=== PATIENT | male | born 1980 | race Caucasian/White ===

== ENCOUNTER 2017-08-23 09:11 | Emergency (ER) | payer OTHER ==
[~2017-08-23] VITALS: Ht 177.8 cm; Wt 93.8 kg
[~2017-08-23 09:11] MED LIST: BUPR2MIS SL; CLON1TAB3 PO
[2017-08-23 09:17] VITALS: Ht 177.8 cm; Wt 93.8 kg
[2017-08-23] MEDS ORDERED: CLON0.5T3 PO (09:31)
[2017-08-23] MEDS ORDERED: BUPR1SUB23 SL (09:31)
--- NOTE | 2017-08-23 10:32 | DIAGNOSTIC IMAGING REPORT ---
HEAD WITHOUT CONTRAST (CT) CT DOSE: 614.27 mGy.cm HISTORY: Mental status change. Vision loss. Evaluate for hemorrhage or pathology TECHNIQUE: Multiaxial CT images of the head were performed without the use of intravenous contrast. A dose lowering technique was utilized adhering to the principles of ALARA. Comparison: 09/04/2007 Findings: The paranasal sinuses and mastoid air cells are clear. The calvarium and skull base are intact. The ventricles and sulci are within normal limits. There is no mass, hematoma, midline shift, or acute infarct. Impression: No acute intracranial abnormality. The above report was generated using voice recognition software. It may contain grammatical, syntax or spelling errors. Electronically signed by: Dwain Holly M.D. 08/23/2017 10:31 AM Dictated Date/Time: 08/23/2017 10:30 AM
[2017-08-23 10:41] LABS: BASO % 0.7 %; BASO ABS # 0.06 K/uL (0-0.2); HEMATOCRIT 42.3 % (42-52); HEMOGLOBIN 14.3 g/dL (14.0-18.0); IG# 0.02 K/uL (0.00-0.02); LYMPH % 27.2 %; LYMPH ABS # 2.27 K/uL (1.2-3.4); MEAN CELL VOLUME 83.3 fL (80-100); MEAN CORPUSCULAR HEMOGLOBIN 28.1 pg (25-34); MEAN CORPUSCULAR HGB CONC 33.8 g/dl (32-36); MEAN PLATELET VOLUME 8.9 fL (7.4-10.4); MONO % 7.7 %; MONO ABS # 0.64 K/uL (0.11-0.59); NEUT % 58.2 %; NEUT ABS # 4.85 K/uL (1.4-6.5); PLATELET COUNT 242 K/uL (130-400); RED CELL DISTRIBUTION WIDTH CV 13.5 % (11.5-14.5); WHITE BLOOD COUNT 8.34 K/uL (4.8-10.8)
[2017-08-23] MEDS ORDERED: BRIMONIDINE TARTRATE-P 0.15% 5 ML BTL OP STA (10:44)
[2017-08-23] MEDS ORDERED: AcetaZOLAMIDE 250 MG TAB PO STA (10:44)
[2017-08-23] MEDS ORDERED: DORZOLAMIDE HCL 2% OPH SOLN 10 ML BTL OP STA (10:44)
[2017-08-23] MEDS ORDERED: LATANOPROST 0.005% OP SOLN 2.5 ML BTL OP STA (10:44)
[2017-08-23] MEDS ORDERED: TIMOLOL MALEATE 0.5% OP SOLN 5 ML BTL OP STA (10:44)
--- NOTE | 2017-08-23 10:49 | EMERGENCY ROOM VISIT NOTE ---
History Report prepared by Marisa: Chapin Negrete Under the Supervision of: Dr. Neftaly Bates M.D. First contact with patient: 09:55 Chief Complaint: EYE ASSESSMENT Stated Complaint: VISION LOSS History of Present Illness The patient is a 36 year old white male who presents to the ED with a cc of an episode of complete left sided visual loss occurring last night. Patient has baseline visual problems, but states that his vision was baseline yesterday prior to the episode. 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 He has had surgery to drain his eyes in the past to relieve pressure. Patient reports that his vision was gone for 1.5 hours last night. Vision returned gradually following this. Positive headache last night. Lost vision in left eye for 1.5 hours, gradually returned. He does not wear glasses or contacts. He denies getting anything in his eyes recently. 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 He was seen at [facility] for his symptoms just prior to arrival and was referred to the ED for further evaluation. He is not on any blood thinners. Negative numbness, weakness, or difficulty speaking. Source of History: patient Onset: Last night Position: eye (left) Symptom Intensity: 1.5 hours long Quality: other (complete visual loss) Timing: other (episode) Associated Symptoms: + headache (last night), No weakness, No numbness Note: Negative: difficulty speaking. Review of Systems See HPI for pertinent positives and negatives. A total of ten systems were reviewed and were otherwise negative. Past Medical & Surgical Medical Problems: (1) Foreign body of hand, left (2) Glaucoma (3) Migraine (4) Opioid dependence on agonist therapy (5) Puncture wound of hand, left Family History No pertinent family history stated. Social History Smoking Status: Current Some Day Smoker Housing Status: lives with family Occupation Status: employed Current/Historical Medications Scheduled Buprenorphine Hcl-Naloxone Hcl (Suboxone 8-2 Mg), 2 DOSE SL DAILY Scheduled PRN Clonazepam (Klonopin), 0.5 MG PO DAILY PRN for UNDECIDED Allergies Coded Allergies: No Known Allergies (Verified , 11/03/15) Physical Exam Vital Signs Date Time Temp Pulse Resp B/P (MAP) Pulse Ox O2 Delivery O2 Flow Rate FiO2 08/23/17 11:23 36.5 77 18 146/93 100 08/23/17 11:17 77 18 146/93 100 Room Air 08/23/17 09:17 36.5 74 18 133/90 100 Room Air Physical Exam GENERAL: Awake, alert, well-appearing, NAD HENT: Normocephalic, atraumatic. EYES: Normal conjunctiva. Sclera non-icteric. 20/100 in the right. For left, able to read card when brought two feet closer. Corneas appear foggy. EOMI. No APD. No proptosis. No conjunctival injection or drainage. Pressure in left eye is 70. Right eye is 11. Negative Lanie's test bilaterally. NECK: Supple. No nuchal rigidity. FROM. RESPIRATORY: CTAB, no rhonchi, wheezing, crackles CARDIAC: RRR, no MRG ABDOMEN: Soft, NTND, BS+ MSK: No chest wall TTP, no LE edema NEURO: CN 2-12 intact, 5/5 upper and lower extremity strength, no dysmetria, no drift, good finger to nose, no sensory deficits. Finger count grossly normal. PERRL. SKIN: No rash or jaundice noted. Medical Decision & Procedures ER Provider Diagnostic Interpretation: Radiology results as stated below per my review and radiologist interpretation: HEAD WITHOUT CONTRAST (CT) Findings: The paranasal sinuses and mastoid air cells are clear. The calvarium and skull base are intact. The ventricles and sulci are within normal limits. There is no mass, hematoma, midline shift, or acute infarct. Impression: No acute intracranial abnormality. The above report was generated using voice recognition software. It may contain grammatical, syntax or spelling errors. Electronically signed by: Dwain Holly M.D. 08/23/2017 10:31 AM Laboratory Results 08/23/17 10:20 Red Blood Count 5.08, Mean Corpuscular Volume 83.3, Mean Corpuscular Hemoglobin 28.1, Mean Corpuscular Hemoglobin Concent 33.8, Mean Platelet Volume 8.9, Neutrophils (%) (Auto) 58.2, Lymphocytes (%) (Auto) 27.2, Monocytes (%) (Auto) 7.7, Eosinophils (%) (Auto) 6.0, Basophils (%) (Auto) 0.7, Neutrophils # (Auto) 4.85, Lymphocytes # (Auto) 2.27, Monocytes # (Auto) 0.64, Eosinophils # (Auto) 0.50, Basophils # (Auto) 0.06 08/23/17 10:20 Test 08/23/17 10:20 White Blood Count 8.34 K/uL (4.8-10.8) Red Blood Count 5.08 M/uL (4.7-6.1) Hemoglobin 14.3 g/dL (14.0-18.0) Hematocrit 42.3 % (42-52) Mean Corpuscular Volume 83.3 fL (80-100) Mean Corpuscular Hemoglobin 28.1 pg (25-34) Mean Corpuscular Hemoglobin Concent 33.8 g/dl (32-36) Platelet Count 242 K/uL (130-400) Mean Platelet Volume 8.9 fL (7.4-10.4) Neutrophils (%) (Auto) 58.2 % Lymphocytes (%) (Auto) 27.2 % Monocytes (%) (Auto) 7.7 % Eosinophils (%) (Auto) 6.0 % Basophils (%) (Auto) 0.7 % Neutrophils # (Auto) 4.85 K/uL (1.4-6.5) Lymphocytes # (Auto) 2.27 K/uL (1.2-3.4) Monocytes # (Auto) 0.64 K/uL (0.11-0.59) Eosinophils # (Auto) 0.50 K/uL (0-0.5) Basophils # (Auto) 0.06 K/uL (0-0.2) RDW Standard Deviation 41.0 fL (36.4-46.3) RDW Coefficient of Variation 13.5 % (11.5-14.5) Immature Granulocyte % (Auto) 0.2 % Immature Granulocyte # (Auto) 0.02 K/uL (0.00-0.02) Erythrocyte Sedimentation Rate 8 mm/hr (0-14) Anion Gap 5.0 mmol/L (3-11) Est Creatinine Clear Calc Drug Dose 137.9 ml/min Estimated GFR () 130.2 Estimated GFR (Non- 112.3 BUN/Creatinine Ratio 25.8 (10-20) Calcium Level 8.6 mg/dl (8.5-10.1) C-Reactive Protein < 0.29 mg/dl (0-0.29) Lyme Disease IgG Antibody NEG (NEG) Lyme Disease IgM Antibody NEG (NEG) Laboratory results reviewed by me Medications Administered Medications (Trade) Dose Ordered Sig/Wojciech Route Start Time Stop Time Status Last Admin Dose Admin Timolol Maleate (Timoptic 0.5% Oph Soln) 2 drops ONE STAT OP 08/23/17 10:44 08/23/17 10:47 DC 08/23/17 11:13 2 DROPS Acetazolamide (Diamox Tab) 500 mg BID STAT PO 08/23/17 10:44 08/23/17 10:47 DC 08/23/17 11:10 500 MG Latanoprost (Xalatan Oph Soln) 2 drops ONE STAT OP 08/23/17 10:44 08/23/17 10:47 DC 08/23/17 11:12 2 DROPS Dorzolamide HCl (Trusopt 2% Oph Soln) 1 drops ONE STAT OP 08/23/17 10:44 08/23/17 10:47 DC 08/23/17 11:12 1 DROPS Brimonidine Tartrate (Alphagan-P 0.15% Oph Soln) 2 drops ONE STAT OP 08/23/17 10:44 08/23/17 10:47 DC 08/23/17 11:11 2 DROPS ED Course 0957: The patient was evaluated in room A4B. A complete history and physical exam was performed. 1045: I reevaluated the patient. Discussed results and discharge instructions: he verbalized understanding and agreement. The patient is ready for discharge. Medical Decision The patient is a 36 year old white male who presents to the ED with a cc of an episode of left sided visual loss occurring last night. Differential diagnosis: Etiologies such as migraine headache, meningitis, sinusitis, CO exposure, ICH, SAH, infection, tumor, headache, sinus thrombosis, arterial dissection, as well as others were entertained. Prior records were reviewed. Patient was seen and evaluated the bedside. Patient was complaining total vision loss in left eye with an associated headache yesterday. Patient states that the headache is resolved he still has some blurry vision left worse than right. Patient does not use any contacts or glasses. Patient denies any recent trauma. 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 Patient does state that he does have a history of questionable increased pressures in his eyes. Patient states that he did have what sounds to be an ocular centesis. On exam the patient does have worsening vision the left eye with increased intraocular pressures at greater than 70. I did speak with the on-call ethnographic materials conservator who recommended being sent over after be given drops as well as p.o. Diamox. Patient's blood work was fairly unremarkable. Inflammatory markers and Lyme's test are unremarkable. Patient was informed of these findings the patient was given the medications and was referred to the outpatient ethnographic materials conservator. Patient was given strict follow-up, discharge, and return precautions. All questions were answered. Patient was deemed suitable for outpatient follow-up at this time. Patient agreed with the plan of care and was safely discharged home. Medication Reconcilliation Current Medication List: was personally reviewed by me Blood Pressure Screening Patient's blood pressure: Elevated blood pressure Blood pressure disposition: Elevated BP felt to be situational Consults Time Called: 1038 Consulting Physician: Dr. Napoles Ophthalmology Returned Call: [phone] Discussed the patient's case. Dr. Napoles recommends Diamox as well as an assortment of eye drops. He would like to see the patient urgently in the office. Impression Primary Impression: Glaucoma Additional Impression: Blurry vision Scribe Attestation The scribe's documentation has been prepared under my direction and personally reviewed by me in its entirety. I confirm that the note above accurately reflects all work, treatment, procedures, and medical decision making performed by me. Departure Information Dispostion Home / Self-Care Referrals No Doctor, Assigned (PCP) Kit Napoles MD Patient Instructions Glaucoma, Glaucoma Tx, My [facility] Additional Instructions Please return to the emergency department if you have worsening or recurrent symptoms not amenable to at-home treatment. Please call for a follow-up appointment with her primary care physician. Please take your medications as prescribed. If you have other concerns and/or complaints please feel free to also call your primary care physician's office or return the ED for further evaluation, management, and treatment. You may take 600 mg Ibuprofen every 6 hours as needed for pain with food for no more than 2 consecutive days. You may take tylenol 1000 mg every 6 hours as needed for pain. You may take motrin and tylenol separately or at the same time. Take your medications as prescribed. Please use the medications for your eyes as instructed by your eye doctor. You have been examined and treated today on an emergency basis only. This is not a substitute for, or an effort to provide, complete comprehensive medical care. It is impossible to recognize and treat all injuries or illnesses in a single emergency department visit. It is therefore important that you follow up closely with [facility], your PCP, and/or your specialist(s). Call as soon as possible for an appointment. Thank you for your time and consideration. I look forward to speaking with you again soon. Please don't hesitate to call us if you have any questions. Problem Qualifiers Primary Impression: Glaucoma Glaucoma type: unspecified Laterality: left Qualified Codes: H40.9 - Unspecified glaucoma
[2017-08-23 10:59] LABS: BLOOD UREA NITROGEN 22 mg/dl (7-18); CALCIUM 8.6 mg/dl (8.5-10.1); CARBON DIOXIDE 25 mmol/L (21-32); CREATININE 0.86 mg/dl (0.60-1.40); GLUCOSE 94 mg/dl (70-99); SODIUM 138 mmol/L (136-145)
[2017-08-23 11:23] VITALS: BP 146/93; PULSE 77; TEMP 36.5; O2SAT 100
== END 2017-08-23 11:26 | disposition home or self-care (01) ==
LOC: C.EDB 09:12 → C.EDA 11:26
DX: H40.9 Unspecified glaucoma (principal); H54.62 Unqualified visual loss, left eye, normal vision right eye; F17.210 Nicotine dependence, cigarettes, uncomplicated

== ENCOUNTER 2021-07-01 10:44 | Observation (INO) ==
[2021-07-01] MEDS ORDERED: MoRPHine SULFATE 4 MG/ML 1 ML CARP\\VIAL ONE (10:50)
[2021-07-01] MEDS ORDERED: ceFAZolin 3,000 MG in DEXTROSE 5% 50 ML IV STA (10:58)
[2021-07-01] MEDS ORDERED: SODIUM CHLORIDE 0.9% 1000ML 2,000 ML IV ONE (11:00)
[2021-07-01 11:05] LABS: Basophils # (auto) 0.05 K/uL (0-0.2); Basophils % (auto) 0.4 %; Eosinophils # (auto) 0.18 K/uL (0-0.5); Eosinophils % (auto) 1.5 %; Hematocrit (blood only) 41.9 % (42-52); Hemoglobin 13.9 g/dL (14.0-18.0); Immature Granulocytes # (auto) 0.03 K/uL (0.00-0.02); Immature Granulocytes % (auto) 0.2 %; Lymphocytes # (auto) 3.76 K/uL (1.2-3.4); Lymphocytes % (auto) 30.9 %; Mean Corpuscular Hemoglobin 28.5 pg (25-34); Mean Corpuscular Hgb Conc 33.2 g/dL (32-36); Mean Corpuscular Volume 85.9 fL (80-100); Mean Platelet Volume 8.9 fL (7.4-10.4); Monocytes # (auto) 0.52 K/uL (0.11-0.59); Monocytes % (auto) 4.3 %; Neutrophils # (auto) 7.62 K/uL (1.4-6.5); Neutrophils % (auto) 62.7 %; Platelet Count 325 K/uL (130-400); RDW Coefficient of Variation 13.7 % (11.5-14.5); Red Blood Count 4.88 M/uL (4.7-6.1); White Blood Count 12.16 K/uL (4.8-10.8)
[2021-07-01 11:07] LABS: iSTAT Creatinine 1.1 mg/dl (0.6-1.3); iSTAT Hemoglobin 14.3 g/dl (14.0-18.0); iSTAT Ionized Calcium 1.15 mmol/l (1.12-1.32)
--- NOTE | 2021-07-01 11:07 | Emergency Department Note ---
Impression & Plan Arm laceration, Arm pain, Leukocytosis, High serum chloride ED Provider Note NAME: GORDON LERMA AGE: 40 SEX: M : 1980 ARRIVES VIA: Ambulance INFORMANT: Patient ED PROVIDER(S): Garry Pickett DO CHIEF COMPLAINT: Right arm pain HPI: Patient is a 40-year-old male who presents to the ER status post fall from scaffolding about 6 feet in the air. He got hung up on the metal scaffolding with the right arm. He landed on his feet as he was held up by the scaffolding. He is having severe pain in the right arm. Denies any tingling or numbness. Did not hit his head or neck. No chest pain or shortness of breath. No belly pain, nausea, vomiting, or diarrhea. No other complaints at this point. Pain is a 10 out of 10 in the right arm. Brought in by EMS. He was given 250 mcg of fentanyl IV prior to arrival within 10 minutes. His pressures did drop slightly after this for EMS. Did asked the patient multiple different times if he actually fell and he denied this and any other trauma. It was witnessed by coworkers who will collaborate his story per Pt and Dad. ROS: See above HPI for pertinent positives & negatives. A total of 10 systems reviewed and were otherwise negative. PAST MEDICAL HISTORY:See Below PAST SURGICAL HISTORY:See Below FAMILY HISTORY:See Below SOCIAL HISTORY:See Below HOME MEDICATIONS:See Below ALLERGIES:See Below VITALS:See Below PHYSICAL EXAMINATION: GENERAL: alert, well appearing, well nourished, no distress, non-toxic HEAD: normal cephalic, atraumatic EYE EXAM: normal conjunctiva, PERRL and EOM's grossly intact OROPHARYNX: no exudate, no erythema, lips, buccal mucosa, and tongue normal and mucous membranes are moist NECK: supple, no nuchal rigidity, no adenopathy, non-tender CHEST: stable to compression anteriorly and posteriorly LUNGS: clear to auscultation. Normal chest wall mechanics HEART: no murmurs, S1 normal and S2 normal ABDOMEN: abdomen soft, non-tender, normo-active bowel sounds, no masses, no rebound or guarding. PELVIS: stable to compression anteriorly and posteriorly BACK: Back is symmetrical on inspection and there is no deformity, no midline tenderness, no CVA tenderness. SKIN: Covered in white plaster dust from head including arms legs and just UPPER EXTREMITIES: Flexion-extension shoulder, elbow wrist as well as grasp and abduction of digits are intact but moderate to significant pain with movement of the elbow. Radial pulses 2 out of 4. Laceration through the soft tissue in the fat anteriorly and posteriorly tracking into the triceps posteriorly. No active bleeding. LOWER EXTREMITIES: full active and passive range of motion of all joints without tenderness to palpation NEURO EXAM: Normal sensorium, cranial nerves II-XII grossly intact, normal speech, no gross weakness of arms, no gross weakness of legs. GCS: 15. MEDICAL DECISION MAKING: Patient is a 40-year-old male who degloved part of his right forearm/distal humerus after falling off of scaffolding and getting his arm caught. He did not fall down and injure anything else. He landed on his feet as he was hung up on the arm. He denies any head or neck pain. No chest pain belly pain back pain or any other extremity pain. He has severe pain 10 out of 10 that right arm. IV was established blood work was obtained. Labs show leukocytosis of 12,000. Mild anemia of 13.9. BMP with a mild elevation in chloride at 109. LFTs bilirubin were unremarkable. Patient was typed and screened. Covid negative. Due to the severity of the injury and the contamination secondary to the plaster did discuss with orthopedics who evaluated him at bedside and took him to the OR. Please see their note for further disposition. Triage Nursing notes reviewed. Limited review of prior medical records performed Vital Signs: reviewed and remarkable for no significant abnormalities Differential diagnosis: Differential diagnoses include major intracranial, cervical, spinal, thoracic, abdominal, pelvic and neurologic injury. Fracture, contusion, sprain, strain, laceration, abrasions included as well. ER treatment provided: See below Diagnostics interpreted by me: ECG: none Cardiac Monitoring: An order was placed for continuous cardiac monitoring. The monitor shows a rate of 70 with sinus rhythm. Laboratory studies: As stated above and show below. Imaging studies: X-rays of the right forearm and humerus show no acute fractures Consultation(s): Discussed with John sheppard who evaluate the patient at bedside. Procedures: none Critical Care: None Past Med/Surg History Medical History No significant past medical history Surgical History History of dental surgery Social History Smoking Status: Current every day smoker Preferred Language: Nepalese marital status: Current Living Situation: Spouse current occupational status: employed Feels Safe at Home: Yes Allergies Allergies Allergy/AdvReac Type Severity Reaction Status Date / Time No Known Allergies Allergy Unknown Verified 07/01/21 11:55 Home Meds Home Medications Medication Instructions Recorded Confirmed acetaminophen 325 mg tablet 975 mg PO QID PRN 07/01/21 07/01/21 (Tylenol) ibuprofen 200 mg tablet (Motrin IB) 600 mg PO Q6H PRN 07/01/21 07/01/21 potassium 99 mg tablet 99 mg PO PM 07/01/21 07/01/21 Results & Data (ED) Vital Signs Vital Signs - 24 hr 07/01/21 10:50 07/01/21 10:55 07/01/21 10:57 Temperature 36.6 C Temperature Source Oral Pulse Rate 97 H 98 H 116 H Pulse Rate [Left Finger] Pulse Rate from SpO2 Sensor 86 95 H Respiratory Rate 22 20 21 Respiratory Effort / Characteristics Non-Labored Spontaneous Respiratory Depth Normal Respiratory Pattern Regular Blood Pressure 92/80 L 146/93 H 121/90 Blood Pressure [Right Arm] Blood Pressure Mean 84 110 100 Blood Pressure Mean [Right Arm] Blood Pressure Position Semi-fowlers Blood Pressure Position [Right Arm] Pulse Oximetry 100 100 100 Oxygen Delivery Method Room Air Sepsis Recent Fever Within 48 Hours No Sepsis New/Unexplained Change in Mental Status No Sepsis Action Taken by Nursing No Action Required 07/01/21 11:00 07/01/21 11:10 07/01/21 11:15 Temperature Temperature Source Pulse Rate 92 H 85 101 H Pulse Rate [Left Finger] Pulse Rate from SpO2 Sensor 88 89 92 H Respiratory Rate 17 16 14 Respiratory Effort / Characteristics Respiratory Depth Respiratory Pattern Blood Pressure 142/99 H 136/91 Blood Pressure [Right Arm] Blood Pressure Mean 113 106 Blood Pressure Mean [Right Arm] Blood Pressure Position Blood Pressure Position [Right Arm] Pulse Oximetry 100 99 100 Oxygen Delivery Method Sepsis Recent Fever Within 48 Hours Sepsis New/Unexplained Change in Mental Status Sepsis Action Taken by Nursing 07/01/21 11:16 07/01/21 11:20 07/01/21 11:30 Temperature Temperature Source Pulse Rate 90 74 80 Pulse Rate [Left Finger] Pulse Rate from SpO2 Sensor 80 79 Respiratory Rate 15 16 15 Respiratory Effort / Characteristics Respiratory Depth Respiratory Pattern Blood Pressure 124/103 H 129/86 Blood Pressure [Right Arm] Blood Pressure Mean 110 100 Blood Pressure Mean [Right Arm] Blood Pressure Position Blood Pressure Position [Right Arm] Pulse Oximetry 100 100 100 Oxygen Delivery Method Room Air Sepsis Recent Fever Within 48 Hours Sepsis New/Unexplained Change in Mental Status Sepsis Action Taken by Nursing 07/01/21 11:40 07/01/21 11:45 07/01/21 12:00 Temperature Temperature Source Pulse Rate 91 H 73 84 Pulse Rate [Left Finger] Pulse Rate from SpO2 Sensor 91 H 74 85 Respiratory Rate 18 15 14 Respiratory Effort / Characteristics Respiratory Depth Respiratory Pattern Blood Pressure 147/86 H 137/88 147/90 H Blood Pressure [Right Arm] Blood Pressure Mean 106 104 109 Blood Pressure Mean [Right Arm] Blood Pressure Position Blood Pressure Position [Right Arm] Pulse Oximetry 100 100 100 Oxygen Delivery Method Sepsis Recent Fever Within 48 Hours Sepsis New/Unexplained Change in Mental Status Sepsis Action Taken by Nursing 07/01/21 12:15 07/01/21 12:30 07/01/21 12:45 Temperature Temperature Source Pulse Rate 79 76 74 Pulse Rate [Left Finger] Pulse Rate from SpO2 Sensor 81 79 76 Respiratory Rate 18 19 15 Respiratory Effort / Characteristics Respiratory Depth Respiratory Pattern Blood Pressure 129/94 146/86 H 138/84 Blood Pressure [Right Arm] Blood Pressure Mean 105 106 102 Blood Pressure Mean [Right Arm] Blood Pressure Position Blood Pressure Position [Right Arm] Pulse Oximetry 100 100 99 Oxygen Delivery Method Sepsis Recent Fever Within 48 Hours Sepsis New/Unexplained Change in Mental Status Sepsis Action Taken by Nursing 07/01/21 13:00 07/01/21 13:08 07/01/21 13:13 Temperature 36.6 C Temperature Source Oral Pulse Rate 76 Pulse Rate [Left Finger] 86 Pulse Rate from SpO2 Sensor 79 Respiratory Rate 15 18 Respiratory Effort / Characteristics Non-Labored Spontaneous Respiratory Depth Normal Respiratory Pattern Regular Blood Pressure 139/87 Blood Pressure [Right Arm] 137/97 Blood Pressure Mean 104 Blood Pressure Mean [Right Arm] 110 Blood Pressure Position Blood Pressure Position [Right Arm] Lying Pulse Oximetry 100 99 Oxygen Delivery Method Room Air Room Air Sepsis Recent Fever Within 48 Hours Sepsis New/Unexplained Change in Mental Status Sepsis Action Taken by Nursing Laboratory Data Result diagrams: 07/01/21 10:50 07/01/21 10:50 Lab Results 07/01/21 07/01/21 07/01/21 Range/Units 10:50 10:50 10:54 WBC 12.16 H (4.8-10.8) K/uL RBC 4.88 (4.7-6.1) M/uL Hgb 13.9 L (14.0-18.0) g/dL POC Hgb 14.3 (14.0-18.0) g/dl Hct 41.9 L (42-52) % POC Hct 42 (42-52) % MCV 85.9 (80-100) fL MCH 28.5 (25-34) pg MCHC 33.2 (32-36) g/dL RDW Std Deviation 43.0 (36.4-46.3) fL RDW Coeff of Fredi 13.7 (11.5-14.5) % Plt Count 325 (130-400) K/uL MPV 8.9 (7.4-10.4) fL Immature Gran % (Auto) 0.2 % Neut % (Auto) 62.7 % Lymph % (Auto) 30.9 % Haakon % (Auto) 4.3 % Eos % (Auto) 1.5 % Baso % (Auto) 0.4 % Neut # (Auto) 7.62 H (1.4-6.5) K/uL Lymph # (Auto) 3.76 H (1.2-3.4) K/uL Haakon # (Auto) 0.52 (0.11-0.59) K/uL Eos # (Auto) 0.18 (0-0.5) K/uL Baso # (Auto) 0.05 (0-0.2) K/uL Immature Gran # (Auto) 0.03 H (0.00-0.02) K/uL POC Sodium 141 (135-144) mmol/L Sodium 139 (136-145) mmol/L POC Potassium 4.0 (3.3-5.0) mmol/L Potassium 4.2 (3.5-5.1) mmol/L POC Chloride 108 (101-112) mmol/L Chloride 109 H (98-107) mmol/L Carbon Dioxide 22 (21-32) mmol/L POC Total CO2 21 L (24-31) mmol/L Anion Gap 8 (3-11) POC Anion Gap 18.0 (16-25) mmol/L POC BUN 23 H (7-18) mg/dl BUN 23 (6-23) mg/dl Creatinine 1.22 (0.6-1.4) mg/dl POC Creatinine 1.1 (0.6-1.3) mg/dl Est Cr Clr Drug Dosing 99.2 ml/min Est GFR ( Amer) 86.0 ml/min Est GFR (Non-Af Amer) 74.2 ml/min BUN/Creatinine Ratio 18.9 (10-20) Glucose 136 H (70-99(Fasting)) mg/dl POC Glucose (other) 138 H (70-99) mg/dl Calcium 8.8 (8.5-10.1) mg/dl POC Ioniz Calcium Edson 1.15 (1.12-1.32) mmol/l Total Bilirubin 0.8 (0.2-1.0) mg/dl AST 17 (13-39) U/L ALT 17 (7-52) U/L Alkaline Phosphatase 46 (34-104) U/L Total Protein 6.7 (6.0-8.3) gm/dl Albumin 3.8 (3.4-5.0) gm/dl Globulin 2.9 (2.5-4.0) gm/dl Albumin/Globulin Ratio 1.3 (0.9-2) Lipase 11 (11-82) U/L SARS-CoV-2, RNA, NAAT (NEGATIVE) Blood Type Antibody Screen 07/01/21 07/01/21 Range/Units 11:05 11:15 WBC (4.8-10.8) K/uL RBC (4.7-6.1) M/uL Hgb (14.0-18.0) g/dL POC Hgb (14.0-18.0) g/dl Hct (42-52) % POC Hct (42-52) % MCV (80-100) fL MCH (25-34) pg MCHC (32-36) g/dL RDW Std Deviation (36.4-46.3) fL RDW Coeff of Fredi (11.5-14.5) % Plt Count (130-400) K/uL MPV (7.4-10.4) fL Immature Gran % (Auto) % Neut % (Auto) % Lymph % (Auto) % Haakon % (Auto) % Eos % (Auto) % Baso % (Auto) % Neut # (Auto) (1.4-6.5) K/uL Lymph # (Auto) (1.2-3.4) K/uL Haakon # (Auto) (0.11-0.59) K/uL Eos # (Auto) (0-0.5) K/uL Baso # (Auto) (0-0.2) K/uL Immature Gran # (Auto) (0.00-0.02) K/uL POC Sodium (135-144) mmol/L Sodium (136-145) mmol/L POC Potassium (3.3-5.0) mmol/L Potassium (3.5-5.1) mmol/L POC Chloride (101-112) mmol/L Chloride (98-107) mmol/L Carbon Dioxide (21-32) mmol/L POC Total CO2 (24-31) mmol/L Anion Gap (3-11) POC Anion Gap (16-25) mmol/L POC BUN (7-18) mg/dl BUN (6-23) mg/dl Creatinine (0.6-1.4) mg/dl POC Creatinine (0.6-1.3) mg/dl Est Cr Clr Drug Dosing ml/min Est GFR ( Amer) ml/min Est GFR (Non-Af Amer) ml/min BUN/Creatinine Ratio (10-20) Glucose (70-99(Fasting)) mg/dl POC Glucose (other) (70-99) mg/dl Calcium (8.5-10.1) mg/dl POC Ioniz Calcium Edson (1.12-1.32) mmol/l Total Bilirubin (0.2-1.0) mg/dl AST (13-39) U/L ALT (7-52) U/L Alkaline Phosphatase (34-104) U/L Total Protein (6.0-8.3) gm/dl Albumin (3.4-5.0) gm/dl Globulin (2.5-4.0) gm/dl Albumin/Globulin Ratio (0.9-2) Lipase (11-82) U/L SARS-CoV-2, RNA, NAAT NEGATIVE (NEGATIVE) Blood Type A Positive Antibody Screen NEGATIVE Administered Medications Morphine Sulfate (Morphine Sulfate 4 Mg/Ml 1 Ml Carp\Vial) 4 mg IV Q1H PRN PRN Reason: Severe Pain (Rating 7,8,9,10) Stop: 07/15/21 11:07 Last Admin: 07/01/21 12:30 Dose: 4 mg Documented by: [id number] Admin: 07/01/21 11:27 Dose: 4 mg Documented by: [id number] Discontinued Medications Cefazolin Sodium 3,000 mg/ (Dextrose) 72.5 mls @ 145 mls/hr IV NOW STA Stop: 07/01/21 11:27 Last Infusion: 07/01/21 12:39 Dose: 0 mls/hr Documented by: [id number] Admin: 07/01/21 11:40 Dose: 145 mls/hr Documented by: [id number] Sodium Chloride (Nss 1000ml) 2,000 mls @ 999 mls/hr IV .Q2H1M ONE Stop: 07/01/21 13:00 Last Infusion: 07/01/21 12:39 Dose: 0 mls/hr Documented by: [id number] Admin: 07/01/21 11:00 Dose: 999 mls/hr Documented by: [id number] Morphine Sulfate (Morphine Sulfate 4 Mg/Ml 1 Ml Carp\Vial) Confirm Administered Dose 8 mg .ROUTE .STK-MED ONE Stop: 07/01/21 10:51 Last Admin: 07/01/21 10:50 Dose: 6 mg Documented by: [id number] Morphine Sulfate (Morphine Sulfate 4 Mg/Ml 1 Ml Carp\Vial) 4 mg IV NOW STA Stop: 07/01/21 12:45 Last Admin: 07/01/21 12:50 Dose: 4 mg Documented by: [id number] Imaging Data Radiologist's Impression: Chest X-Ray 07/01/21 10:56 XR chest 1V portable CLINICAL HISTORY: fall TECHNIQUE: Single frontal radiograph of the chest was obtained. Comparison: None available at the time of this dictation. FINDINGS: No lines and tubes are seen. The cardiomediastinal silhouette is normal. The lungs are clear. No evidence of pleural effusion or pneumothorax. IMPRESSION: No acute chest disease. ACT 112: Negative or not required by law. Electronically signed by: Angel Murillo M.D. 07/01/2021 11:15 AM Forearm X-Ray 07/01/21 10:56 XR forearm RT 2V CLINICAL HISTORY: Right degloving injury TECHNIQUE: 2 views of the right forearm were obtained. Comparison: None available at the time of this dictation. FINDINGS: There is no evidence of acute fracture or dislocation. The alignment is anatomic. Joint spaces are well-preserved. No soft tissue abnormality is seen. IMPRESSION: No evidence of acute bony injury. ACT 112: Negative or not required by law. Electronically signed by: Angel Murillo M.D. 07/01/2021 11:19 AM Humerus X-Ray 07/01/21 10:56 XR humerus RT 2V CLINICAL HISTORY: Degloving injury. COMPARISON: Right elbow radiographs November 03, 2015. FINDINGS: Alignment of the right shoulder and right elbow is anatomic. No acute fracture of the right humerus is noted. Note is made of extensive soft tissue injury of the posterior aspect of the mid to distal right upper arm. No radiopaque foreign bodies are identified. Overlying bandages are present. IMPRESSION: 1. Extensive soft tissue injury of the posterior aspect of the mid to distal right upper arm. No radiopaque foreign bodies. 2. No acute fracture of the right humerus. ACT 112: Negative or not required by law. Electronically signed by: Cole Ellis M.D. 07/01/2021 11:22 AM Discharge Plan Visit Data Chief Complaint: Fall Stated Complaint: FALL, DEGLOVED R ARM ED Provider: Garry Pickett Discharge Problem: Arm laceration, Arm pain, Leukocytosis, High serum chloride Discharge Instructions Interventions: ED Discharge Assessment Last Done: 07/01/21 13:08 Discharge Problem: Arm laceration Qualifiers: Encounter type: initial encounter Laterality: right Qualified Code(s): S41.111A - Laceration without foreign body of right upper arm, initial encounter Arm pain Qualifiers: Laterality: right Qualified Code(s): M79.601 - Pain in right arm Leukocytosis Qualifiers: Leukocytosis type: unspecified Qualified Code(s): D72.829 - Elevated white blood cell count, unspecified
[2021-07-01] MEDS ORDERED: MoRPHine SULFATE 2 MG/ML CARP IV PRN (11:08)
--- NOTE | 2021-07-01 11:17 | XRay Report ---
XR chest 1V portable CLINICAL HISTORY: fall TECHNIQUE: Single frontal radiograph of the chest was obtained. Comparison: None available at the time of this dictation. FINDINGS: No lines and tubes are seen. The cardiomediastinal silhouette is normal. The lungs are clear. No evid ence of pleural effusion or pneumothorax. IMPRESSION: No acute chest disease. ACT 112: Negative or not required by law. Electronically signed by: Angel Murillo M.D. 07/01/2021 11:15 AM
--- NOTE | 2021-07-01 11:20 | XRay Report ---
XR forearm RT 2V CLINICAL HISTORY: Right degloving injury TECHNIQUE: 2 views of the right forearm were obtained. Comparison: None available at the time of this dictation. FINDINGS: There is no evidence of acute fracture or dislocation. The alignment is anatomic. Joint spaces are we ll-preserved. No soft tissue abnormality is seen. IMPRESSION: No evidence of acute bony injury. ACT 112: Negative or not required by law. Electronically signed by: Angel Murillo M.D. 07/01/2021 11:19 AM
--- NOTE | 2021-07-01 11:24 | XRay Report ---
XR humerus RT 2V CLINICAL HISTORY: Degloving injury. COMPARISON: Right elbow radiographs November 03, 2015. FINDINGS: Alignment of the right shoulder and right elbow is anatomic. No acute fracture of the righ t humerus is noted. Note is made of extensive soft tissue injury of the posterior aspect of the mid t o distal right upper arm. No radiopaque foreign bodies are identified. Overlying bandages are present . IMPRESSION: 1. Extensive soft tissue injury of the posterior aspect of the mid to distal right upper arm. No radi opaque foreign bodies. 2. No acute fracture of the right humerus. ACT 112: Negative or not required by law. Electronically signed by: Cole Ellis M.D. 07/01/2021 11:22 AM
[2021-07-01] MEDS: MoRPHine SULFATE 4 MG/ML 1 ML CARP\\VIAL IV PRN ×2 (11:27→12:30)
[2021-07-01 11:46] LABS: Albumin Globulin Ratio 1.3 (0.9-2); Albumin Level 3.8 gm/dl (3.4-5.0); BUN Creatinine Ratio 18.9 (10-20); Bilirubin,Total 0.8 mg/dl (0.2-1.0); Calcium 8.8 mg/dl (8.5-10.1); Creatinine Clr Calc Pharmacy 99.2 ml/min; Est GFR (Non-African American) 74.2 ml/min; Globulin 2.9 gm/dl (2.5-4.0); Potassium 4.2 mmol/L (3.5-5.1); Total Protein 6.7 gm/dl (6.0-8.3)
--- NOTE | 2021-07-01 12:26 | Orthopedic Consultation ---
Date of Consultation July 01, 2021 Assessment & Plan (1) Open upper arm wound: (2) Degloving injury of arm: Discussed diagnosis with patient. Surgery indicated to clean out his wound and close it. Plan on exploring the wound. After reviewing risks/benefits of surgery, alternatives and expected outcomes he elects to proceed. All questions answered. Informed consent signed. Proceed to OR today. COVID test was negative. Has not eaten today. Admit to hospital after surgery for IV antibiotics. History of Present Illness Reason for Consultation: R arm degloving wound History of Present Illness Patient is a 40-year-old male, RHD, who presents the ER status post fall from scaffolding about 6 feet in the air. He got hung up on the metal scaffolding with the right arm. He landed on his feet as he was held up by the scaffolding. He is having severe pain in the right arm. Denies any tingling or numbness. Did not hit his head or neck. No chest pain or shortness of breath. No belly pain, nausea, vomiting, or diarrhea. No other complaints at this point. Pain is a 10 out of 10 in the right arm. Brought in by EMS. He was given 250 mcg of fentanyl IV prior to arrival within 10 minutes. His pressures did drop slightly after this for EMS. Did asked the patient multiple different times if he actually fell and he denied this and any other trauma. It was witnessed by coworkers who will collaborate his story per Pt and Dad. Ortho consulted for evaluation and management. Patient seen and examined in ER. He has a history of numbness in his ulnar nerve distribution of the right hand and weakness in finger abduction from a previous injury. No new or worsened numbness. No other problems with the right arm. Allergies Allergy/AdvReac Type Severity Reaction Status Date / Time No Known Allergies Allergy Unknown Verified 07/01/21 11:55 Home Medications Medication Instructions Recorded Confirmed Type acetaminophen 325 mg tablet 975 mg PO QID PRN 07/01/21 07/01/21 History (Tylenol) ibuprofen 200 mg tablet (Motrin IB) 600 mg PO Q6H PRN 07/01/21 07/01/21 History potassium 99 mg tablet 99 mg PO PM 07/01/21 07/01/21 History Patient History Medical History No significant past medical history Surgical History History of dental surgery Social History Smoking Status: Current every day smoker Preferred Language: Citizen Of [place] marital status: Current Living Situation: Spouse current occupational status: employed Feels Safe at Home: Yes Physical Exam Physical Exam: R arm: L shaped skin flap anterior arm over the distal 1/3 of the biceps, about 12 cm longitudinally and about 8 cm transversely. Skin and subcutaneous tissue ripped off the fascia, exposing the anterior biceps, brachial artery medially can be seen pulsing in the wound. Small violation of triceps fascia. No gross contamination. Skin edges appear viable. Distally he has numbness in ulnar nerve distribution, Wartenberg sign and weakness in finger abduction 4/5. Plaster covers his hands and forearm. Results & Data ([facility]) Vital Signs (Past 12 Hours) Vital Signs Temp Pulse Resp BP Pulse Ox 07/01/21 11:45 73 15 137/88 100 07/01/21 11:40 91 H 18 147/86 H 100 07/01/21 11:30 80 15 129/86 100 07/01/21 11:20 74 16 124/103 H 100 07/01/21 11:16 90 15 100 07/01/21 11:15 101 H 14 100 07/01/21 11:10 85 16 136/91 99 07/01/21 11:00 92 H 17 142/99 H 100 07/01/21 10:57 36.6 C 116 H 21 121/90 100 07/01/21 10:55 98 H 20 146/93 H 100 07/01/21 10:50 97 H 22 92/80 L 100
[2021-07-01] MEDS ORDERED: MoRPHine SULFATE 4 MG/ML 1 ML CARP\\VIAL IV STA (12:44)
--- NOTE | 2021-07-01 13:11 | Electrocardiogram Report ---
Test Reason : Blood Pressure : / mmHG Vent. Rate : 064 BPM Atrial Rate : 064 BPM P-R Int : 136 ms QRS Dur : 092 ms QT Int : 412 ms P-R-T Axes : 037 -24 000 degrees QTc Int : 425 ms Normal sinus rhythm Minimal voltage criteria for LVH, may be normal variant Abnormal ECG No previous ECGs available Confirmed by Kevin Ashby [id number]) on 07/01/2021 1:11:10 PM Referred By: REFERRED SELF Confirmed By:Deacon Ashby
[2021-07-01] MEDS ORDERED: BUPIVACAINE 0.5 % 5 MG/1 ML MPF 30ML VIAL ONE (14:58)
[2021-07-01] MEDS ORDERED: EPINEPHrine INJ 1 MG/ML AMP ONE (14:58)
--- NOTE | 2021-07-01 15:03 | Anesthesiology Consultation ---
Date of Service July 01, 2021 Assessment & Plan Chart Review Chart Review: Acceptable Risk for Surgery and Patient NOT seen in Pre Admission Testing Consults Requested none ASA ASA2 Proposed Anesthesia Anesthesia Type: General Risk / Benefits Reviewed With: PT / POA / Parent / Guardian, Accepts Plan and Informed Consent Obtained History Surgery Operation Date: 07/01/21 09:45 Proposed Procedures p Right Incision and Drainage Degloving Wound Closure - John Zavaleta MD Height/Weight Height: 5 ft 11 in Weight: 102.8 kg Allergies Allergy/AdvReac Type Severity Reaction Status Date / Time No Known Allergies Allergy Unknown Verified 07/01/21 11:55 Medications Home Medications Medication Instructions Recorded Confirmed Last Taken acetaminophen 325 mg tablet 975 mg PO QID PRN 07/01/21 07/01/21 07/01/21 04:30 (Tylenol) 975 mg ibuprofen 200 mg tablet (Motrin IB) 600 mg PO Q6H PRN 07/01/21 07/01/21 06/30/21 600 mg potassium 99 mg tablet 99 mg PO PM 07/01/21 07/01/21 06/30/21 99 mg Active Medications Generic Name Dose Route Start Last Admin Trade Name Freq PRN Reason Stop Dose Admin Morphine Sulfate 4 mg 07/01/21 11:08 07/01/21 12:30 Morphine Sulfate 4 Mg/Ml 1 Ml Carp\Vial IV 07/15/21 11:07 4 mg Q1H PRN Administration Severe Pain (Rating 7,8,9,10) NPO Date Last Intake of Fluids: 07/01/21 Time Last Intake of Fluids: 10:00 Date Last Intake of Solids: 06/30/21 Time Last Intake of Solids: 17:30 Past Medical History Medical History No significant past medical history Exercise / Class Metabolic Activity II 4-5 Yardwork/Stairs/Walk up hill Past Surgical History Surgical History History of dental surgery Past Anesthesia History No Hx of Anesthesia Complications and No Family Hx of Anesthesia Complications History of PONV No Hx of PONV and No Hx of Motion Sickness Social History Smoking Status: Current every day smoker Physical Exam Vital Signs Last Vital Signs Temp 36.6 C 07/01/21 13:13 Pulse 86 07/01/21 13:13 Resp 18 07/01/21 13:13 BP 137/97 07/01/21 13:13 Pulse Ox 99 07/01/21 13:13 ENMT Mouth: no dentition abnormality Thyromental Distance: > or= 3.5 Finger Breadths Mallampati Class: II Neck normal visual inspection Respiratory normal respiratory effort Auscultation: lungs clear to auscultation bilaterally Cardiovascular Rate/Rhythm: regular rate and regular rhythm Psychiatric Orientation: alert Testing Laboratory Results 07/01/21 10:50 07/01/21 10:50 Blood Type A Positive 07/01/21 11:15 Antibody Screen NEGATIVE 07/01/21 11:15 07/01/21 10:54 POC Glucose (other) 138 H
[2021-07-01] MEDS ORDERED: fentaNYL citrate 100 MCG/2 ML VIAL ONE ×2 (15:06→16:05)
[2021-07-01] MEDS ORDERED: MIDAZOLAM HCL 1 MG/ML 2ML VIAL ONE (15:06)
[2021-07-01] MEDS ORDERED: LIDOCAINE 2% 2 ML VIAL/AMP(20MG/ML) INFIL ONE (15:12)
[2021-07-01] MEDS ORDERED: PROPOFOL IV EMULSION 10 MG/ML 20 ML VIAL IV ONE (15:12)
[2021-07-01] MEDS ORDERED: ONDANSETRON INJ 2 MG/ML 2 ML VIAL ONE (15:12)
[2021-07-01] MEDS ORDERED: SUCCINYLCHOLINE CHLORIDE 20 MG/ML 10 ML VIAL IV ONE (15:12)
[2021-07-01] MEDS ORDERED: DEXAMETHASONE SOD INJ 4 MG/ML VIAL ONE (15:12)
[2021-07-01] MEDS ORDERED: PROMETHAZINE HCL 6.25 MG in SODIUM CHLORIDE 0.9% 50 ML IV PRN (15:35)
[2021-07-01] MEDS ORDERED: ePHEDrine sulfate 50 MG/ML AMP IV PRN (15:35)
[2021-07-01] MEDS ORDERED: ONDANSETRON INJ 2 MG/ML 2 ML VIAL IV PRN ×2 (15:35→17:45)
[2021-07-01] MEDS ORDERED: ATROPINE SULFATE 0.1 MG/ML 10ML SYR IV PRN (15:35)
[2021-07-01] MEDS ORDERED: TRANEXAMIC ACID / 0.7% NACL 1000MG/100ML BAG IV ONE (15:39)
[2021-07-01] MEDS ORDERED: ceFAZolin 330 MG/ML 1 GM VIAL ONE (16:04)
[2021-07-01 16:39] LABS: Hematocrit (blood only) 33.4 % (42-52); Hemoglobin 10.8 g/dL (14.0-18.0); Mean Corpuscular Hgb Conc 32.3 g/dL (32-36); Mean Corpuscular Volume 86.5 fL (80-100); Mean Platelet Volume 8.5 fL (7.4-10.4); Platelet Count 283 K/uL (130-400); RDW Standard Deviation 44.3 fL (36.4-46.3); Red Blood Count 3.86 M/uL (4.7-6.1); White Blood Count 12.33 K/uL (4.8-10.8)
[2021-07-01] MEDS ORDERED: ALBUMIN HUMAN 5% 12.5 GM/250 ML VIAL IV ONE (16:49)
[2021-07-01] MEDS ORDERED: ceFAZolin 1000MG 1,000 MG/7.5 ML SYR IV ONE (17:19)
[2021-07-01] MEDS ORDERED: SODIUM CHLORIDE 0.9% 1000ML 1,000 ML IV SCH (17:45)
[2021-07-01] MEDS ORDERED: ACETAMINOPHEN 325 MG TAB PO PRN ×2 (17:45→17:50)
[2021-07-01] MEDS ORDERED: ALUMINUM/MAGNESIUM SUSP 30 ML UDC PO PRN (17:45)
[2021-07-01] MEDS ORDERED: diphenhydrAMINE 50 MG/ML VIAL IV PRN ×2 (17:45→18:33)
--- NOTE | 2021-07-01 17:45 | Operative Report ---
Post Operative Report Pre & Post Diagnosis Operation Date: 07/01/21 09:45 Pre-Op Diagnosis: Open right upper arm wound; Degloving injury of right arm Post-Op Diagnosis: Open right upper arm wound; Degloving injury of right arm I identified the patient and participated in the time-out.: Yes Procedure Operation Date: 07/01/21 09:45 Actual Procedures p Right Arm Incision and Drainage Degloving Wound Closure(Right) - John Zavaleta MD Surgeon John Zavaleta MD Emergency Room Technician Samy Priest PA-C Estimated Blood Loss 200 Findings Consistent with Post-Op Diagnosis Specimens none Description of Procedure I was present during the entire procedure assisting with positioning, prepping, draping, wound retraction, wound closure, and dressing application. No fellow present. Please see Dr. Zavaleta procedure note for specifics of the case. I attest to the content of the Intraoperative Record and any orders documented therein. Any exceptions are noted below.
[2021-07-01] MEDS ORDERED: NEOSTIGMINE METHYLSULFATE 1 MG/ML 10ML VIAL ONE (17:47)
[2021-07-01] MEDS ORDERED: GLYCOPYRROLATE 0.2 MG/ML VIAL ONE (17:47)
[2021-07-01] MEDS ORDERED: IBUPROFEN 600 MG TAB PO PRN (17:50)
--- NOTE | 2021-07-01 18:07 | Operative Report ---
Post Operative Report Pre & Post Diagnosis Operation Date: 07/01/21 09:45 Pre-Op Diagnosis: Open right upper arm wound; Degloving injury of right arm Post-Op Diagnosis: Open right upper arm wound; Degloving injury of right arm I identified the patient and participated in the time-out.: Yes Procedure Operation Date: 07/01/21 09:45 Actual Procedures p Right Arm Incision and Drainage Degloving, Complex Wound Closure involving fascia, subcutaneous tissue and 35 cm of skin (Right) - John Zavaleta MD Surgeon John Zavaleta MD Leather Piece Inspector Samy Priest PA-C. No resident or fellow was available to assist. 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 He sustained a degloving wound of his right arm. He presented to the emergency room where I was consulted for management of his wound. In the emergency room he was noted to have well-perfused hand. The brachial artery was visible in the wound. He had some numbness in his ulnar nerve distribution but this was a pre-existing condition. Surgery was indicated to irrigate and debride his wound then close it to decrease the risk of infection. I discussed the risks and benefits of surgery, alternatives to surgery, and expected outcomes. After reviewing all these elected to proceed with surgery. All questions were answered. Informed consent was signed. Description of Procedure Patient surgical site was marked in the emergency room. He was brought back to the main operating room where he was placed in the operating table and general anesthesia was administered. He had previously received 3 g of IV Ancef in the emergency room. This was more than 1 hour ago. Therefore we redosed his Ancef to give him another 1 g prior to incision. The limb was then cleaned to remove dried blood and plaster from his hand as well as dirt from underneath his fingernails. This was done with a chlorhexidine sponge. The arm was then dried. We then prepped the arm with Betadine and draped it sterilely. Prior to incision a multidisciplinary timeout was called. All in the room were in agreement. We began by obtaining hemostasis of the wound. There was a substantial amount of clotted blood when we removed his dressing. estimated that there was close to 200 cc of clotted blood. We applied pressure to the wound and located venous bleeders. Smaller unnamed veins that were larger than 1 mm in diameter were tied off with a 2-0 Vicryl tie. Veins which were smaller than 1 mm in diameter were cauterized with the Bovie and DeBakey forceps. Once we had hemostasis we were then able to explore his wound. This degloving wound was torn from the proximal arm and reflected distally. The flaps were all well perfused. The subcutaneous fat had gone with the flap distally for the most part with the exception of the posterior medial aspect of the wound overlying the triceps. The total length of the wound at closure was 35 cm. It began along the medial aspect of the antecubital fossa and extended proximally in an upside down U- shaped to overlie the distal one third of the biceps then curved back distally along the posterior aspect of the triceps. With the flap reflected distally the degloving injury traversed approximately 6 cm distal to the flexor pronator insertion and medial epicondyle. The medial antebrachial cutaneous nerve was evident in the wound and was not torn. However in the proximal aspect of the wound the medial brachial nerve was lacerated. This was dissected out and cut sharply and allowed to retract underneath the subcutaneous tissues into the proximal medial forearm. The fascia overlying the pronator teres and flexor pronator insertion was torn starting at the medial epicondyle and moving in line with the muscle fibers 4 cm distally. Along the medial aspect of the arm the basilic vein had been avulsed and it clotted off. The distal end of the basilic vein was within the subcutaneous flap and had previously been suture ligated. We then used a 2-0 Vicryl suture to ligate the basilic vein. 3-0 Vicryl suture with a needle attached was then used to puncture through the vein distal to this in order to ensure that the suture would not slide off. This was tied to itself then wrapped around the vein once again tied to secure the suture to the vein. The vein distal to this was then excised. At this point we inspected the subcutaneous tissues. Small flaps which were hanging on by a thread were debrided and discarded. Along the lateral aspect of the wound the cephalic vein as well as the antecubital vein were visible. These were fortunately undamaged. At this point the pulse lavage was used to irrigate out the wound using 6 L of normal saline. As stated above there was no dirt or foreign material notable within the wound. Once this was complete we then began to close this wound. We started by closing the fascia overlying the flexor pronator insertion using 0 PDS suture in running fashion back up to the medial epicondyle. Good coverage of the muscle was obtained. Next we used an 0 PDS to loosely reapproximate the subcutaneous fatty tissues within the flap to close any space. Once the subcutaneous tissues of the flap were all completely stable we then began to close the skin. 2-0 Prolene was used for the majority of the skin closure. However in areas where the skin was thinned we elected to use a 3-0 nylon suture. Horizontal mattress sutures were performed. We were able to nicely reapproximate the skin all the way across the degloving injury. At this point we used a ruler to determine the total length of the laceration. It measured 35 mm in total. 30 cc of half percent Marcaine was injected in subcutaneous tissues throughout the length of the incision for postoperative pain control. The arm was cleaned and dressed with Xeroform 4 x 4's ABD soft roll and an Jaydon wrap from his MCP joints up to his axilla. Patient was then awoken from anesthesia and transferred recovery room in stable condition. Postoperative course: Patient will be admitted overnight for pain control and IV antibiotics. We will plan on discharging him home tomorrow with his dressing in place. He will return to clinic on Monday for a dressing change. He will discharge home on oral Keflex. He will begin immediate range of motion exercises starting tomorrow. Aspirin for DVT prophylaxis. I attest to the content of the Intraoperative Record and any orders documented therein. Any exceptions are noted below.
[2021-07-01] MEDS: fentaNYL citrate 100 MCG/2 ML VIAL IV PRN ×4 (18:15→18:30)
--- NOTE | 2021-07-01 18:24 | Anesthesiology Progress Note ---
Date of Service July 01, 2021 Anesthesia Post Procedure Vital Signs Vital Signs: Temp Pulse Pulse Pulse Resp BP BP 07/01/21 18:10 72 14 144/93 H 07/01/21 18:00 78 12 143/89 H 07/01/21 17:53 36.3 C L 88 13 148/121 H 07/01/21 13:13 36.6 C 86 18 07/01/21 13:00 76 15 139/87 07/01/21 12:45 74 15 138/84 07/01/21 12:30 76 19 146/86 H 07/01/21 12:15 79 18 129/94 07/01/21 12:00 84 14 147/90 H 07/01/21 11:45 73 15 137/88 07/01/21 11:40 91 H 18 147/86 H 07/01/21 11:30 80 15 129/86 07/01/21 11:20 74 16 124/103 H 07/01/21 11:16 90 15 07/01/21 11:15 101 H 14 07/01/21 11:10 85 16 136/91 07/01/21 11:00 92 H 17 142/99 H 07/01/21 10:57 36.6 C 116 H 21 121/90 07/01/21 10:55 98 H 20 146/93 H 07/01/21 10:50 97 H 22 92/80 L BP Pulse Ox 07/01/21 18:10 97 07/01/21 18:00 98 07/01/21 17:53 96 07/01/21 13:13 137/97 99 07/01/21 13:00 100 07/01/21 12:45 99 07/01/21 12:30 100 07/01/21 12:15 100 07/01/21 12:00 100 07/01/21 11:45 100 07/01/21 11:40 100 07/01/21 11:30 100 07/01/21 11:20 100 07/01/21 11:16 100 07/01/21 11:15 100 07/01/21 11:10 99 07/01/21 11:00 100 07/01/21 10:57 100 07/01/21 10:55 100 07/01/21 10:50 100 Pain Intensity Right Arm: Pain Intensity: 4 Transfer of Care Handoff Completed per policy Notes Mental Status: alert / awake / arousable Patient Amnestic to Procedure: Yes Nausea / Vomiting: adequately controlled Pain: adequately controlled Airway Patency, RR, SpO2: stable & adequate BP & HR: stable & adequate Hydration State: stable & adequate Anesthetic Complications: no major complications apparent
[2021-07-01] MEDS ORDERED: HYDROmorphone INJ 1 MG/ML SYRINGE ONE (18:35)
[2021-07-01] MEDS: HYDROmorphone INJ 1 MG/ML SYRINGE IV PRN ×8 (18:37→19:12)
[2021-07-01] MEDS ORDERED: NON-FORMULARY MEDICATION (Potassium 99 mg Tablet) PO SCH (21:00)
[2021-07-01] MEDS: ASPIRIN 81 MG ECTAB PO SCH (21:44)
[2021-07-01] MEDS ORDERED: ceFAZolin 2000MG 2,000 MG/15 ML SYR IV ONE (22:00)
[2021-07-01] MEDS: oxyCODONE/ACETAMINOPHEN 5mg/325mg TAB PO PRN (22:00)
[2021-07-01 23:23] LABS: Appearance Urine Clear (Clear); Bilirubin Urine Negative (Negative); Blood Urine Negative (Negative); Color Urine Yellow; Glucose Urine UA Negative (Negative); Ketones Urine Trace (Negative); Leukocyte Esterase Urine Negative (Negative); Nitrite Urine Negative (Negative); Protein Urine Negative (Negative); Specific Gravity Urine 1.018 (1.000-1.030); Urobilinogen Urine Negative (Negative); pH Urine 6.5 (4.5-7.5)
[2021-07-02] MEDS: oxyCODONE/ACETAMINOPHEN 5mg/325mg TAB PO PRN ×2 (04:15→12:39)
[2021-07-02] MEDS: ASPIRIN 81 MG ECTAB PO SCH (08:22)
[2021-07-02] MEDS ORDERED: ceFAZolin 2000MG 2,000 MG/15 ML SYR IV ONE (10:45)
--- NOTE | 2021-07-02 11:31 | Orthopedic Progress Note ---
Date of Service July 02, 2021 Assessment & Plan (1) Degloving injury of arm: Plan: PT/OT Pain control p.o. medication Ice with easy wrap Keep dressing in place until follow-up DVT prophylaxis with aspirin Infection prophylaxis with prescription for cephalexin Plan on discharge home today. Follow-up with [facility] orthopedics on July 05 at 10 AM. With questions contact our clinic at [phone] Admission and Anticipated Discharge Date Admission Date: July 01, 2021 Subjective This 40-year-old male seen this morning day 1 status post degloving injury of right upper extremity that required I&D and surgical closure. Patient states he is doing very well. He states his pain is well controlled with p.o. pain medication. He is hoping to be able to go home later today. He denies chest pain, shortness of breath, fever, chills, sweats, lethargy or numbness or tingling in his right upper extremity. Review of Systems Review of Systems: All systems reviewed & are unremarkable except as noted in Subjective Physical Exam Physical Exam: Right upper extremity: Dressing was kept in place. Patient is able to reach terminal Extension of his elbow but is limited to 90 degrees of flexion due to pain tension. He has full range of motion of his wrist. Appropriate dexterity of his fingers. Full range of motion of the shoulder. He is neurovascularly intact in right upper extremity. He is able to detect light sensation to touch over the pads of all digits. Peripheral pulses are 2+. Capillary fill is less than 2 seconds. Results & Data ([facility]) Vital Signs (Past 12 Hours) Vital Signs Temp Pulse Pulse Resp BP Pulse Ox 07/02/21 07:16 36.5 C 59 L 16 130/80 99 07/02/21 04:14 36.5 C 65 16 143/74 H 98 Diagnostic Findings Laboratory Results WBC 12.33 K/uL (4.8-10.8) H 07/01/21 16:24 RBC 3.86 M/uL (4.7-6.1) L 07/01/21 16:24 Hgb 10.8 g/dL (14.0-18.0) L D 07/01/21 16:24 POC Hgb 14.3 g/dl (14.0-18.0) 07/01/21 10:54 Hct 33.4 % (42-52) L 07/01/21 16:24 POC Hct 42 % (42-52) 07/01/21 10:54 MCV 86.5 fL (80-100) 07/01/21 16:24 MCH 28.0 pg (25-34) 07/01/21 16:24 MCHC 32.3 g/dL (32-36) 07/01/21 16:24 RDW Std Deviation 44.3 fL (36.4-46.3) 07/01/21 16:24 RDW Coeff of Fredi 14.0 % (11.5-14.5) 07/01/21 16:24 Plt Count 283 K/uL (130-400) 07/01/21 16:24 MPV 8.5 fL (7.4-10.4) 07/01/21 16:24 Immature Gran % (Auto) 0.2 % 07/01/21 10:50 Neut % (Auto) 62.7 % 07/01/21 10:50 Lymph % (Auto) 30.9 % 07/01/21 10:50 [place] % (Auto) 4.3 % 07/01/21 10:50 Eos % (Auto) 1.5 % 07/01/21 10:50 Baso % (Auto) 0.4 % 07/01/21 10:50 Neut # (Auto) 7.62 K/uL (1.4-6.5) H 07/01/21 10:50 Lymph # (Auto) 3.76 K/uL (1.2-3.4) H 07/01/21 10:50 [place] # (Auto) 0.52 K/uL (0.11-0.59) 07/01/21 10:50 Eos # (Auto) 0.18 K/uL (0-0.5) 07/01/21 10:50 Baso # (Auto) 0.05 K/uL (0-0.2) 07/01/21 10:50 Immature Gran # (Auto) 0.03 K/uL (0.00-0.02) H 07/01/21 10:50 POC Sodium 141 mmol/L (135-144) 07/01/21 10:54 Sodium 139 mmol/L (136-145) 07/01/21 10:50 POC Potassium 4.0 mmol/L (3.3-5.0) 07/01/21 10:54 Potassium 4.2 mmol/L (3.5-5.1) 07/01/21 10:50 POC Chloride 108 mmol/L (101-112) 07/01/21 10:54 Chloride 109 mmol/L (98-107) H 07/01/21 10:50 Carbon Dioxide 22 mmol/L (21-32) 07/01/21 10:50 POC Total CO2 21 mmol/L (24-31) L 07/01/21 10:54 Anion Gap 8 (3-11) 07/01/21 10:50 POC Anion Gap 18.0 mmol/L (16-25) 07/01/21 10:54 POC BUN 23 mg/dl (7-18) H 07/01/21 10:54 BUN 23 mg/dl (6-23) 07/01/21 10:50 Creatinine 1.22 mg/dl (0.6-1.4) 07/01/21 10:50 POC Creatinine 1.1 mg/dl (0.6-1.3) 07/01/21 10:54 Est Cr Clr Drug Dosing 99.2 ml/min 07/01/21 10:50 Est GFR ( Amer) 86.0 ml/min 07/01/21 10:50 Est GFR (Non-Af Amer) 74.2 ml/min 07/01/21 10:50 BUN/Creatinine Ratio 18.9 (10-20) 07/01/21 10:50 Glucose 136 mg/dl (70-99(Fasting)) H 07/01/21 10:50 POC Glucose (other) 138 mg/dl (70-99) H 07/01/21 10:54 Calcium 8.8 mg/dl (8.5-10.1) 07/01/21 10:50 POC Ioniz Calcium Edson 1.15 mmol/l (1.12-1.32) 07/01/21 10:54 Total Bilirubin 0.8 mg/dl (0.2-1.0) 07/01/21 10:50 AST 17 U/L (13-39) 07/01/21 10:50 ALT 17 U/L (7-52) 07/01/21 10:50 Alkaline Phosphatase 46 U/L (34-104) 07/01/21 10:50 Total Protein 6.7 gm/dl (6.0-8.3) 07/01/21 10:50 Albumin 3.8 gm/dl (3.4-5.0) 07/01/21 10:50 Globulin 2.9 gm/dl (2.5-4.0) 07/01/21 10:50 Albumin/Globulin Ratio 1.3 (0.9-2) 07/01/21 10:50 Lipase 11 U/L (11-82) 07/01/21 10:50 Urine Color Yellow 07/01/21 22:50 Urine Appearance Clear (Clear) 07/01/21 22:50 Urine pH 6.5 (4.5-7.5) 07/01/21 22:50 Ur Specific [place] 1.018 (1.000-1.030) 07/01/21 22:50 Urine Protein Negative (Negative) 07/01/21 22:50 Urine Glucose (UA) Negative (Negative) 07/01/21 22:50 Urine Ketones Trace (Negative) H 07/01/21 22:50 Urine Blood Negative (Negative) 07/01/21 22:50 Urine Nitrite Negative (Negative) 07/01/21 22:50 Urine Bilirubin Negative (Negative) 07/01/21 22:50 Urine Urobilinogen Negative (Negative) 07/01/21 22:50 Ur Leukocyte Esterase Negative (Negative) 07/01/21 22:50 SARS-CoV-2, RNA, NAAT NEGATIVE (NEGATIVE) 07/01/21 11:05 Blood Type A Positive 07/01/21 11:15 Antibody Screen NEGATIVE 07/01/21 11:15 Impressions Chest X-Ray 07/01/21 10:56 XR chest 1V portable CLINICAL HISTORY: fall TECHNIQUE: Single frontal radiograph of the chest was obtained. Comparison: None available at the time of this dictation. FINDINGS: No lines and tubes are seen. The cardiomediastinal silhouette is normal. The lungs are clear. No evidence of pleural effusion or pneumothorax. IMPRESSION: No acute chest disease. ACT 112: Negative or not required by law. Electronically signed by: Angel Murillo M.D. 07/01/2021 11:15 AM Forearm X-Ray 07/01/21 10:56 XR forearm RT 2V CLINICAL HISTORY: Right degloving injury TECHNIQUE: 2 views of the right forearm were obtained. Comparison: None available at the time of this dictation. FINDINGS: There is no evidence of acute fracture or dislocation. The alignment is anatomic. Joint spaces are well-preserved. No soft tissue abnormality is seen. IMPRESSION: No evidence of acute bony injury. ACT 112: Negative or not required by law. Electronically signed by: Angel Murillo M.D. 07/01/2021 11:19 AM Humerus X-Ray 07/01/21 10:56 XR humerus RT 2V CLINICAL HISTORY: Degloving injury. COMPARISON: Right elbow radiographs November 03, 2015. FINDINGS: Alignment of the right shoulder and right elbow is anatomic. No acute fracture of the right humerus is noted. Note is made of extensive soft tissue injury of the posterior aspect of the mid to distal right upper arm. No radiopaque foreign bodies are identified. Overlying bandages are present. IMPRESSION: 1. Extensive soft tissue injury of the posterior aspect of the mid to distal right upper arm. No radiopaque foreign bodies. 2. No acute fracture of the right humerus. ACT 112: Negative or not required by law. Electronically signed by: Cole Ellis M.D. 07/01/2021 11:22 AM
--- NOTE | 2021-07-02 11:37 | Discharge Summary ---
Date of Service July 02, 2021 Admission HPI Per Admitting Provider Patient is a 40-year-old male, RHD, who presents the ER status post fall from scaffolding about 6 feet in the air. He got hung up on the metal scaffolding with the right arm. He landed on his feet as he was held up by the scaffolding. He is having severe pain in the right arm. Denies any tingling or numbness. Did not hit his head or neck. No chest pain or shortness of breath. No belly pain, nausea, vomiting, or diarrhea. No other complaints at this point. Pain is a 10 out of 10 in the right arm. Brought in by EMS. He was given 250 mcg of fentanyl IV prior to arrival within 10 minutes. His pressures did drop slightly after this for EMS. Did asked the patient multiple different times if he actually fell and he denied this and any other trauma. It was witnessed by coworkers who will collaborate his story per Pt and Dad. Ortho consulted for evaluation and management. Patient seen and examined in ER. He has a history of numbness in his ulnar nerve distribution of the right hand and weakness in finger abduction from a previous injury. No new or worsened numbness. No other problems with the right arm. Admission Exam Per Admitting Provider R arm: L shaped skin flap anterior arm over the distal 1/3 of the biceps, about 12 cm longitudinally and about 8 cm transversely. Skin and subcutaneous tissue ripped off the fascia, exposing the anterior biceps, brachial artery medially can be seen pulsing in the wound. Small violation of triceps fascia. No gross contamination. Skin edges appear viable. Distally he has numbness in ulnar nerve distribution, Wartenberg sign and weakness in finger abduction 4/5. Plaster covers his hands and forearm. Principal Diagnosis Degloving injury right upper extremity Discharge Exam Right upper extremity: Dressing was kept in place. Patient is able to reach terminal Extension of his elbow but is limited to 90 degrees of flexion due to pain tension. He has full range of motion of his wrist. Appropriate dexterity of his fingers. Full range of motion of the shoulder. He is neurovascularly intact in right upper extremity. He is able to detect light sensation to touch over the pads of all digits. Peripheral pulses are 2+. Capillary fill is less than 2 seconds. Discharge Data Allergies Allergy/AdvReac Type Severity Reaction Status Date / Time No Known Allergies Allergy Unknown Verified 07/01/21 11:55 Consultations 07/01/21 11:17 Consult Orthopedic Surgery Stat 07/01/21 11:32 Consult Orthopedic Surgery Stat Procedures Performed Operation Date: 07/01/21 09:45 Actual Procedures p Right Arm Incision and Drainage Degloving Wound Closure(Right) - John Zavaleta MD Hospital Course (1) Degloving injury of arm: Patient had an uneventful overnight stay. His pain was well controlled with p.o. pain medications. We will plan on discharge home today prescriptions for oxycodone and Keflex. I would like him to resume his ibuprofen for pain and inflammation relief and he can supplement for pain with extra strength Tylenol. Patient is scheduled for follow-up evaluation at our clinic ([facility]) on Monday morning at 10 AM with Joshua Priest PA-C. PT/OT Pain control p.o. medication Ice with easy wrap Keep dressing in place until follow-up DVT prophylaxis with aspirin Infection prophylaxis with prescription for cephalexin Plan on discharge home today. Follow-up with [facility] orthopedics on July 05 at 10 AM. With questions contact our clinic at [phone] Total Time Total Time Spent Total Time Spent (In Minutes): 15 minutes Discharge Plan Discharge Items Patient Disposition: Home - Self-Care Reason For Visit: FALL, DEGLOVED R ARM Discharge Diagnosis: Right arm degloved injury Activity: As commented below Lifting: Wait until after follow-up appointment Bathing: Keep incision dry Bathing Comment: May shower tomorrow Sexual Activity: Wait until after follow-up appointment Exercise/Sports: Wait until after follow-up appointment Driving/Machine Use: No driving until cleared by wildlife refuge specialist Weightbearing: Right partial Weightbearing Comment: Weightbearing. No lifting more than a full coffee cup until your follow-up Non-emergency contact: Surgeon Call non-emergency contact if: you have any medication questions, your pain is not controlled, your temperature is above 101.5, your wound has increased drainage and your wound pain has increased Follow-up/Referrals: John Zavaleta MD [Physician] - PCP,NO [Primary Care Provider] - Diet: Regular Addtl Attending Provider Instructions: Post-operative Instructions Dear Patient and Family/Friends, Before you are discharged from the hospital, it is important to know what to expect when you get home after surgery. To that end, we have created this sheet of discharge instructions which covers many commonly asked questions. Make sure you go through this sheet in its entirety with your nurse before you are discharged. Please note that we will go over the specifics of your surgery and recovery when you return for your first post-operative visit. Sincerely, Dr. Zavaleta Pain Expect to be in a fair amount of pain after surgery. Remember, our goal is not to eliminate your pain, but to make it tolerable. It is a good idea to stay ahead of your pain by taking the medications you were prescribed once you get home. Typically, the pain starts improving 3-7 days after surgery. You should start weaning off the narcotic pain medication (oxycodone, hydrocodone, hydromorphone, morphine) as soon as your pain improves. Please call our office if your pain is not adequately controlled. Ice Ice your operative site at least 5 times a day for 15-30 minutes at a time. Make sure you have a thin cloth between the ice or cooling unit and your skin to prevent henderson bite. This is especially important if you received a nerve block. Continue icing your operative site for the first 5-7 days after surgery, then as needed. Diet/Nausea/Vomiting Start by drinking clear liquids and eating crackers. If you can tolerate this, then you may resume your normal diet. If you feel nauseated or vomit, take Zofran/ondansetron (if prescribed). Please call our office if you have intractable nausea or vomiting, or, if after hours, you may go to the Emergency Room for help. Constipation Constipation is a common side effect of narcotic pain medication. If you have not had a bowel movement within 2 days after surgery, we recommend purchasing an over the counter laxative such as Milk of Magnesia, Dulcolax, or Miralax from a local pharmacy, and taking it as instructed. Call our clinic if any questions. Weight bearing and Range of Motion. Do not bear any weight through your operative extremity immediately after surgery. If you had upper extremity surgery, do not lift anything with that arm. If you are in a knee brace, keep it locked in place until your follow-up. We will discuss your weight bearing, range of motion, and lifting restrictions in detail at your first post-operative appointment. Continuous Passive Motion (CPM) Machine If you were prescribed a CPM machine, it will start after your first post- operative appointment, at which time we will give you instructions on the range of motion settings and duration of treatment Physical therapy You will be given a prescription for physical therapy or occupational therapy at your first post-operative appointment. Typically, patients start therapy within 1 week of surgery Wound care and showering We will inspect your wound at your first post-operative visit, and may do a dressing change at that time. Most patients will be in a water-proof dressing that is removed 14 days after surgery. It is normal to see some dried blood on the dressing. Do not remove your dressing, paper strips or sutures yourself unless you are given permission. Showering is allowed the day after surgery. Do not scrub or remove any dressings. The wound should not be submerged underwater (i.e. in a bathtub or pool) until 4 weeks after surgery YSABEL stockings If you were given white stockings, these are to be worn at all times except to shower (on both legs) for the first 2 weeks after surgery. Driving You may not drive while taking narcotic pain medication or while in a cast, splint, sling or brace. You, the patient, need to make the final determination about when you are safe to drive, however, the earliest you may consider driving after surgery is below: Hand/Wrist/Elbow Surgery: 3 days Shoulder Surgery: 2 weeks Hip,/Knee/Ankle Surgery: 4 weeks Fracture repair: 6 weeks Return to Work Your return to work depends on what surgery was done and what type of work you do. Please bring any paperwork your employer needs completed to your first post-operative visit. Also, bring a description of your job duties, as this helps us to understand what risks you may face at work. Travel Avoid long distance travel (greater than 1 hour) in airplanes and cars for the first 6 weeks after surgery. If you must travel, you need to have a Doppler ultrasound done before you travel to rule out a blood clot in your legs. Follow-up You should have a follow-up appointment already scheduled 1-2 days after surgery. If not, please contact our office to make this appointment before you leave the hospital. When to call the office It is normal to have swelling and bruising in the limb that was operated on. This will improve with time. It is also normal to have fevers for the first 2 days after surgery. Reasons you should call your doctor include: Uncontrolled pain; Nausea, vomiting, or constipation that does not improve with medication; Fevers over 101.5, chills, sweats; Drainage or bleeding from the wound; Foul odor; Spreading areas of redness; Any other concerns Pending Studies at Discharge: No Stand-Alone Forms: My [facility], Smoking Cessation Medications and DC Order Prescriptions: New cephalexin 500 mg capsule 500 mg PO TID 7 Days Qty: 21 RF: 0 oxycodone 5 mg tablet 5 mg PO Q4H Qty: 28 RF: 0 Continued acetaminophen [Tylenol] 325 mg Tablet 975 mg PO QID PRN (Reason: knee pain) RF: 0 potassium 99 mg Tablet 99 mg PO PM RF: 0 ibuprofen [Motrin IB] 200 mg Tablet 600 mg PO Q6H PRN (Reason: knee pain) RF: 0 Discharge Orders: Discharge Order (Routine); Ordered 07/02/21 Ordered By: Miguel Priest Admission Data Admit Date/Time: 07/01/21 17:46 Attending Provider: John Zavaleta Admit Provider: John Zavaleta Primary Care Provider: PCP,NO Other Providers: John Zavaleta
== END 2021-07-02 13:44 | disposition home or self-care (01) ==
LOC: ED 10:44 → ASU 13:10 → 3N 13:10